=== PATIENT | male | born 1990 | race Caucasian/White ===

== ENCOUNTER 2016-07-28 19:59 | Emergency (ER) | payer OTHER ==
[2016-07-28 20:50] VITALS: BP 148/74
--- NOTE | 2016-07-28 23:06 | UC ---
Complaint Male HPI - HPI Summary HPI Summary: Had unprotected sex a few days ago, and would like to be tested for STD's. Declines HIV testing and syphilis testing. Also has some intermittent bilateral lower abd discomfort, suprapubic. No pain or burning with urination. No hematuria. No sores or blisters on his penis. No testicular pain. - History of Current Complaint Chief Complaint: UCAbdominalPain Stated Complaint: LOWER ABD PAIN Time Seen by Provider: 07/28/16 23:04 Hx Obtained From: Patient Onset/Duration: Gradual Onset, Lasting Days, Still Present Timing: Intermittent, Lasting Minutes Severity Initially: Moderate Severity Currently: Moderate Pain Intensity: 0 - no pain in UC Pain Scale Used: 0-10 Numeric Location: Suprapubic Character: Constant Pressure Aggravating Factor(s): Nothing Alleviating Factor(s): Nothing Associated Signs And Symptoms: Positive: Constipation. Negative: Diaphoresis, Back Pain, Fever, Hematuria, Dysuria, Blood in Stool, Rectal Pain, Nausea, Vomiting(# Of Episodes =), Penile Swelling, Penile Discharge Prior STD Hx: no - Risk Factors Testicular Torsion: Negative - Allergies/Home Medications Allergies/Adverse Reactions: Allergies Allergy/AdvReac Type Severity Reaction Status Date / Time No Known Allergies Allergy Verified 07/28/16 20:43 PMH/Surg Hx/FS Hx/Imm Hx Previously Healthy: Yes - Surgical History Surgical History: None - Family History Known Family History: Positive: Hypertension - Social History Alcohol Use: Occasionally Substance Use Type: None Smoking Status (MU): Never Smoked Tobacco Review of Systems Constitutional: Negative Skin: Negative Eyes: Negative ENT: Negative Respiratory: Negative Cardiovascular: Negative Gastrointestinal: Abdominal Pain Genitourinary: Other - sensation at the tip of his penis Motor: Negative Neurovascular: Negative Musculoskeletal: Negative Neurological: Negative Psychological: Negative All Other Systems Reviewed And Are Negative: Yes Physical Exam Triage Information Reviewed: Yes Appearance: Well-Appearing, No Pain Distress, Well-Nourished Vital Signs: Initial Vital Signs Temp 97.5 F 07/28/16 20:43 Pulse 57 07/28/16 20:43 Resp 16 07/28/16 20:43 BP 148/74 07/28/16 20:43 Pulse Ox 100 07/28/16 20:43 Vital Signs Reviewed: Yes Eyes: Positive: Conjunctiva Clear ENT: Positive: Hearing grossly normal. Negative: Muffled/hoarse voice Neck: Positive: Supple Respiratory: Positive: Lungs clear, Normal breath sounds, No respiratory distress Cardiovascular: Positive: RRR, No Murmur, Pulses Normal, Brisk Capillary Refill Abdomen Description: Positive: No Organomegaly, Soft, Other: - nl circ male, no discharge, no testicular masses or tenderness, descended bilat, no blisters or lesions, shaved perineum with a few follicles reddened. Min suprapubic discomfort. Negative: Bruit, CVA Tenderness (R), CVA Tenderness (L), Distended , Guarding, Hernia @, Hepatomegaly, McBurney's Point Tenderness, Peritoneal Signs, Pulsatile Mass, Splenomegaly Bowel Sounds: Positive: Present Musculoskeletal: Positive: Strength Intact, ROM Intact Neurological: Positive: Alert, Muscle Tone Normal Psychological Exam: Normal Skin Exam: Normal Complaint Male Course/Dx - Course Course Of Treatment: pt elects to have empiric treatment as he is no longer with that sexual partner and just wants to be treated, so he agrees to ceftriaxone and azithromycin treatment now. UA is neg for leuks, blood and nitrates, sp gr 1.025 - Differential Dx/Diagnosis Differential Diagnosis/HQI/PQRI: Paraphimosis, Ureteral Calculi, Urinary Tract Infection, Other - STD Provider Diagnoses: STD exposure, testing and treatment. abdominal pain Discharge - Discharge Plan Condition: Stable Disposition: HOME Patient Education Materials: Sexually Transmitted Diseases (ED) Referrals: No Primary Care Phys,NOPCP [Primary Care Provider] - [facility] [Outside] (call this number to get a primary care provider ) Additional Instructions: Your urine test did not show a UTI (urinary tract infection). We have sent testing for gonorrhea, chlamydia and trichomonas. Meanwhile we have empirically treated you for gonorrhea and chlamydia. We will notify you if you need further treatment or need to notify any partners based on the results which will take a few days. You should practice safe sex until we get those results even though you have been treated. We did not identify the cause for your lower abdominal discomfort tonight, but it does not appear to be serious at this time, and does not need further emergency care at this time. Return to urgent care or go to the emergency room if you have any new or worsening symptoms.
[2016-07-28] MEDS ORDERED: cefTRIAXone VIAL(*) 250 MG VIAL IM ONE (23:34)
[2016-07-28] MEDS ORDERED: Lidocaine 1% MPF* 2 ML VIAL INJ ONE (23:35)
[2016-07-28] MEDS ORDERED: Azithromycin TAB* 250 MG PO ONE (23:42)
[2016-07-28] MEDS ORDERED: Ondansetron ODT TAB* 4 MG PO ONE (23:42)
== END 2016-07-29 00:09 | disposition home or self-care (01) ==
LOC: UCEAST 19:59
DX: Z20.2 Contact with and (suspected) exposure to infections with a predominantly sexual mode of transmission (principal)
CPT/HCPCS: 81003; 87491; 87591; 87661; 96372; 99212; A9270-GY; G0463; J0696

== ENCOUNTER 2017-01-17 16:31 | Emergency (ER) | payer OTHER ==
[2017-01-17] MEDS ORDERED: Ibuprofen TAB* 600 MG PO ONE (16:38)
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
[2017-01-17 16:53] VITALS: BP 131/60
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
== END 2017-01-17 17:36 | disposition home or self-care (01) ==
LOC: UCEAST 16:31
DX: S62.339A Displaced fracture of neck of unspecified metacarpal bone, initial encounter for closed fracture (principal); Y93.75 Activity, martial arts; Y92.9 Unspecified place or not applicable; Y99.9 Unspecified external cause status
CPT/HCPCS: 99211; A9270-GY; G0463

== ENCOUNTER 2017-05-20 18:28 | Emergency (ER) | payer OTHER ==
[2017-05-20 18:37] VITALS: BP 133/74
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
== END 2017-05-20 19:13 | disposition home or self-care (01) ==
LOC: UCEAST 18:28
DX: Z11.3 Encounter for screening for infections with a predominantly sexual mode of transmission (principal); R36.9 Urethral discharge, unspecified; N48.89 Other specified disorders of penis
CPT/HCPCS: 81003; 87491; 87591; 99211; G0463

== ENCOUNTER 2017-06-02 15:52 | Emergency (ER) | payer OTHER ==
[2017-06-02 16:35] VITALS: BP 116/52
--- NOTE | 2017-06-02 18:00 | UC ---
Ear Complaint HPI - HPI Summary HPI Summary: 26 yo WM c/o decreased hearing on right ear associated with cerumen impaction per pt. MORRISON had it for a week, denies pain - History of Current Complaint Chief Complaint: UCEar Stated Complaint: EAR COMPLAINT Time Seen by Provider: 06/02/17 17:15 Hx Obtained From: Patient Onset/Duration: Lasting Days Pain Intensity: 0 Aggravating Factors: Nothing Alleviating Factors: Nothing - Allergies/Home Medications Allergies/Adverse Reactions: Allergies Allergy/AdvReac Type Severity Reaction Status Date / Time No Known Allergies Allergy Verified 06/02/17 16:36 PMH/Surg Hx/FS Hx/Imm Hx Previously Healthy: Yes - Surgical History Surgical History: Yes Surgery Procedure, Year, and Place: Metacarpal repair - Family History Known Family History: Positive: Hypertension - Social History Alcohol Use: Rare Alcohol Amount: Monthly Substance Use Type: None Smoking Status (MU): Never Smoked Tobacco Review of Systems Constitutional: Negative Skin: Negative Eyes: Negative ENT: Other - mild decreased hearing on right >L Respiratory: Negative Cardiovascular: Negative Gastrointestinal: Negative Genitourinary: Negative Motor: Negative Neurovascular: Negative Neurological: Negative Psychological: Negative All Other Systems Reviewed And Are Negative: Yes Physical Exam Triage Information Reviewed: Yes Appearance: Well-Appearing Vital Signs: Initial Vital Signs Temp 36.9 C 06/02/17 16:31 Pulse 60 06/02/17 16:31 Resp 16 06/02/17 16:31 BP 116/52 06/02/17 16:31 Pulse Ox 100 06/02/17 16:31 Eye Exam: Normal ENT: Positive: Other - B/L cerumen impaction Dental Exam: Normal Neck exam: Normal Neck: Positive: 1 Respiratory Exam: Normal Cardiovascular Exam: Normal Abdominal Exam: Normal Musculoskeletal Exam: Normal Neurological Exam: Normal Psychological Exam: Normal Skin Exam: Normal Ear Complaint Course/Dx - Course Course Of Treatment: cerumen successfully removed with clear visualization of TM B/L with good light reflex - Differential Dx/Diagnosis Differential Diagnosis/HQI/PQRI: Cerumen Impaction, Otitis Externa, Otitis Media , URI Provider Diagnoses: B/L cerumen impaction Discharge - Sign-Out/Discharge Documenting (check all that apply): Discharge - Discharge Plan Condition: Stable Disposition: HOME Patient Education Materials: Cerumen Impaction (ED) Referrals: Aaron aBrba MD [Primary Care Provider] - Additional Instructions: please use ear curette to prevent regular build up of ear wax - Billing Disposition and Condition Condition: STABLE Disposition: HOME
== END 2017-06-02 17:55 | disposition home or self-care (01) ==
LOC: UCEAST 15:52
DX: H61.23 Impacted cerumen, bilateral (principal); R51 Headache
CPT/HCPCS: 99213; G0463

== ENCOUNTER 2017-11-15 12:47 | Emergency (ER) | payer OTHER ==
[2017-11-15 13:02] VITALS: BP 129/84
[2017-11-15] MEDS ORDERED: Tetracaine 0.5% OPTH.SOL 4 ML* 1 DROP BTL RIGHT EYE ONE (13:54)
[2017-11-15] MEDS ORDERED: Fluorescein Sod TOPICAL 0.6* 0.6 MG TEST OPHTHALMIC ONE (13:54)
[2017-11-15] MEDS ORDERED: Ibuprofen TAB* 600 MG PO ONE (13:54)
[2017-11-15] MEDS ORDERED: Lidocain 1% EPI 1:100,000 * 30 ML MDV INJ ONE (13:58)
[2017-11-15] MEDS ORDERED: Tetan/Diph/Pertus SYR(Tdap)* 0.5 ML SYR(BOOSTRIX) use SYR IM ONE (13:59)
[2017-11-15] MEDS ORDERED: Polymyx/Trimethoprim OPTH* 10 ML BTL RIGHT EYE ONE (14:07)
[2017-11-15] MEDS ORDERED: Lidocain 1% EPI 1:100,000 * 30 ML MDV ONE (14:23)
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
--- NOTE | 2017-11-15 15:02 | UC ---
Head Injury HPI - HPI Summary HPI Summary: 27-year-old male presents for head injury after tripping and falling down some stairs. States he was descending some outdoor stairs when he tripped and fell striking the right side of his face on the railing. He is unsure the exact number of stairs he fell down. Denies any loss of consciousness and is able to recall the events immediately prior and following the incident. He is complaining of a mild headache. He has an open laceration to his right upper eyelid, a very superficial laceration to his right cheek immediately below his right eye with significant bruising and swelling of that area. He is also reporting a scratching, foreign body sensation to his right eye is associated with some mild photophobia and tearing. Denies visual disturbances, dizziness, lightheadedness, neck pain, jaw pain, malocclusion, chest pain, palpitations, shortness of breath , abdominal pain, nausea, vomiting, or any other injury. - History Of Current Complaint Chief Complaint: UCLaceration Stated Complaint: LAC ON FACE Time Seen by Provider: 11/15/17 13:43 Hx Obtained From: Patient Onset/Duration: Sudden Onset Severity Currently: Moderate Severity Initially: Moderate Pain Intensity: 2 Character: Dull - headache Aggravating Factor(s): Nothing Alleviating Factor(s): Nothing Associated Signs And Symptoms: Negative: LOC (Time In Secs./Mins/Hrs), Confusion , Memory Loss, Seizure - Headache, Dental Malocclusion, Neck Pain, Nausea, Vomiting - Risk Factors SDH Risk Factor: Negative - Allergies/Home Medications Allergies/Adverse Reactions: Allergies Allergy/AdvReac Type Severity Reaction Status Date / Time No Known Allergies Allergy Verified 11/15/17 13:02 PMH/Surg Hx/FS Hx/Imm Hx - Additional Past Medical History Additional PMH: Denies significant past medical history - Surgical History Surgical History: Yes Surgery Procedure, Year, and Place: Metacarpal repair - Family History Known Family History: Positive: Hypertension - Social History Occupation: Employed Full-time Lives: With Family Alcohol Use: Rare Alcohol Amount: Monthly Substance Use Type: None Smoking Status (MU): Never Smoked Tobacco - Immunization History Hx Tetanus, Diphtheria Vaccination: No - unknown tetanus status Review of Systems Constitutional: Negative Skin: Other - See history of present illness Eyes: Photophobia, Other - See history of present illness ENT: Nasal Discharge Respiratory: Negative Cardiovascular: Negative Gastrointestinal: Negative Motor: Negative Neurovascular: Negative Musculoskeletal: Negative Neurological: Headache Psychological: Anxious Is Patient Immunocompromised?: No All Other Systems Reviewed And Are Negative: Yes Physical Exam Triage Information Reviewed: Yes Appearance: Well-Nourished, Pain Distress - Appears uncomfortable, Signs of Trauma - Localized trauma to the right orbital region. There is bruising, swelling, and tenderness to the right maxilla. No crepitus noted. Lacerations as noted below. Vital Signs: Initial Vital Signs Temp 97.2 F 11/15/17 12:57 Pulse 80 11/15/17 12:57 Resp 18 11/15/17 12:57 BP 129/84 11/15/17 12:57 Pulse Ox 98 11/15/17 12:57 Vital Signs Reviewed: Yes Eyes: Positive: Other: - Mild right conjunctival erythema with significant tearing. Tetracaine drops instilled into right eye followed by fluorescein staining and I examined under magnification using a Glaser lamp. A large corneal abrasion noted to the lower part of the eye but does not involve visual field. See diagram. ENT: Positive: Pharynx normal, Nasal drainage - clear, blood tinged drainage from right nare, Uvula midline, Other - TMJ nontender with smooth ROM without click or crepitus. Extraoccular eye movements intact.. Negative: Dental tenderness - No maloclusion Neck: Positive: Supple, Nontender, Other: - Full painless ROM. No stepoffs or deformities noted. Respiratory: Positive: Chest non-tender, Lungs clear, Normal breath sounds, No respiratory distress Cardiovascular: Positive: RRR, No Murmur, Pulses Normal, Brisk Capillary Refill Abdomen Description: Positive: Nontender, No Organomegaly, Soft. Negative: Distended, Guarding Bowel Sounds: Positive: Present Musculoskeletal: Positive: Strength Intact - All extremities, ROM Intact - All extremities, Other: - Pelvis stable. CTLS spine nontender. Neurological: Positive: Alert - AAOx4. PERRLA. FELICIANO equal and strong. Sensoromotor intact., Muscle Tone Normal Skin: Positive: significant lesion(s) - 2 cm open laceration to right upper eyelid. Superficial laceration right cheek. See diagram. Procedures - Eye Procedure Right Alcaine Drops Administered: Yes - with fluorsceine. See PE for details. Antibiotic Ointment/Drps Admin: right eye - Laceration/Wound Repair 1 Location: Other - right upper eyelid Description: Linear Anesthesia: 1.0% - with epi Length, Depth and Shape: 2 cm linear incision down to SC layer Betadine Prep?: No - wound cleansed with sterile saline and cholorhexadine solution Irrigated w/ Saline (ccs): 250 Laceration/Wound Explored: clean Closure: Single Layer Suture Type: Nylon - 6.0 Ethilon Number of Sutures: 6 - A running suture was used with a total of 6 throws. Layer Closure?: No Sterile Dressing Applied?: No Diagnostics - Radiology No standard instances Xray Interpretation: Positive (See Comments) Radiology Interpretation Completed By: ED Physician, Radiologist - Patient Name : JOE HERNANDEZ Medical Record#: [id number] Ordering Physician: Girish Dominguez NP Acct.#: [id number] : 1990 Age: 27 Sex: M Location: [facility] Exam Date: 11/15/17 135 ADM Status: REG ER Order Information: CT MAXILLOFACIAL W/O Accession Number: [id number] CPT: 46854 HISTORY: facial trauma s/p fall down stairs COMPARISONS: None TECHNIQUE: Multiple contiguous axial CT scans were obtained of the face without intravenous contrast, with coronal and sagittal multiplanar reformations. FINDINGS: BONES: There is comminuted fractures involving the anterior maxilla extending to the inferior orbital wall. The right zygomatic arch is intact. The pterygoid plate is intact. ORBITS: There is extraconal subcutaneous emphysema of the right orbit. There is minimal herniation of orbital fat through the orbital floor fracture. There is no retrobulbar hematoma. PARANASAL SINUSES: There is an air-fluid level within the right maxillary sinus. BRAIN AND SOFT TISSUE: Unremarkable. OTHER: None. IMPRESSION: COMMINUTED FRACTURE OF THE RIGHT ANTERIOR MAXILLA INVOLVING THE INFRAORBITAL WALL WITH A SMALL AMOUNT OF HERNIATION OF ORBITAL FAT THROUGH THE FLOOR OF THE FRACTURE. Head Injury Course/Dx - Course Course Of Treatment: 27-year-old male presents with a reported fall down unknown number of stairs stairs. He has significant localized trauma to the right orbital area. No other injuries were noted. Patient was reluctant to give details regarding the incident and considering how localized trauma was I do have a question as to the exact mechanism of his injuries. He denied any loss of consciousness and his neuro exam was intact. He was complaining of severe right high scratchiness with a foreign body sensation and excessive tearing. Tetracaine and fluorescein were instilled into the eye and it was examined under magnification with Wood's lamp and a large corneal abrasion was noted across the lower aspect of the iris but did not involve his field of vision. Patient was then sent for maxillofacial CT which showed a comminuted fracture of the anterior maxilla extending to the inferior orbital wall with some minimal herniation of orbital fat through the orbital floor fracture as well as some extraconal subcutaneous emphysema the right orbit and an air-fluid level within the right maxillary sinus. Patient had a 2 cm linear laceration to his right upper eyelid that was cleaned and repaired using a running suture of 6-0 Ethilon. There was a second superficial laceration to his right cheek but wound margins were well aligned and therefore it was decided that no repair was necessary. Tetanus was updated. Case was discussed with Dr. Nava and it was determined patient could be safely discharged with antibiotics and close follow-up with ENT. Patient was still complaining of some significant high irritation at the time of discharge so arrangements were made for him to be further evaluated by ophthalmology and Dr. Guerin's office upon discharge from . Wound care instructions and anticipatory guidance was discussed with the patient. Warning symptoms requiring immediate evaluation in the ER were reviewed. Patient verbalized understanding and agreed with plan of care. - Differential Dx/Diagnosis Provider Diagnoses: Comminuted fracture right anterior maxilla involving the infraorbital wall, laceration right upper eye lid, superficial facial laceration right cheek, right corneal abrasion Discharge - Sign-Out/Discharge Documenting (check all that apply): Patient Departure All imaging exams completed and their final reports reviewed: Yes - Discharge Plan Condition: Stable Disposition: HOME Prescriptions: Amoxicillin/Clavulanate TAB* [Augmentin TAB 875*] 875 mg PO BID #20 tab Hydrocodone/Acetaminophen [Hydrocodone-Acetamin 5-325 mg] 1 each PO Q8HR PRN # 21 tablet MDD 3 PRN Reason: Pain Patient Education Materials: Care For Your Stitches (ED), Laceration (ED), Facial Fracture (ED), Corneal Abrasion (ED) Referrals: Aaron Barba MD [Primary Care Provider] - Abdirahman Guerin MD [Medical Doctor] - As Soon As Possible (You have an appointment to see them urgently after discharge from here. Go strait to office. ) Palmer Coburn MD [Medical Doctor] - 3 Days (Call for appointment.) Additional Instructions: Start Augmentin 1 tab twice a day for 10 days. Be sure to take this with some food to avoid upset stomach. Use [id number] ibuprofen (Advil, Motrin) 600 mg every 8 hours as needed for pain. Use hydrocodone-acetaminophen 1 tab every 8 hours as needed for severe pain. Cleanse your lacerations gently with a mild soap and water at least daily. Apply a thin layer of antibiotic ointment such as bacitracin to these wounds twice a day. You will need to have the sutures removed in 5-7 days. May return here or follow up with her primary care provider to have this done. Watch for signs of infection including a fever greater than 100.5 F, redness that spreads, increased swelling, pain that is not controlled pain medication, or any pus draining from the wounds. He should seek immediate medical attention should any of these occur. Go directly from here to see Dr. Guerin, ophthalmology, for further evaluation of her corneal abrasion. Follow-up with Dr. Coburn, ENT, within 3 days for follow up of your facial fracture. Call for an appointment. Seek immediate medical attention in the emergency room if you have a severe headache, visual disturbances, dizziness or lightheadedness, confusion, are difficult to arouse, difficulty speaking, weakness, numbness, or tingling in arms or legs, chest pain, shortness of breath, or any worsening of symptoms. - Billing Disposition and Condition Condition: STABLE Disposition: Home Images Head: 1 - 2 cm open lacearation with bleeding controlled 2 - 0.5 cm superficial laceration with wound margins well approximated 3 - Eccymosis, swelling, and tenderness over maxilla 4 - Large corneal abrasion that extends across lower part of iris without involvement of the visual field - Attestation Statements Provider Attestation: I was available for consult. This patient was seen by the [facility]. The patient was discussed, but not seen by, or examined by me. -Hermelinda
--- OUTSIDE RECORDS SUMMARY | 2017-11-17 04:18 | XMS REPORT | Continuity of Care Document ---
:1990 External Reference #:[id number] Author Name Javon Layne M.D. Address [address] [place] [address] Care Team Providers Name Role Phone Javon Layne M.D. Care Team Information Quality Engineer Medical Device Unavailable Payers Type Date Identification Numbers Payment Provider Subscriber Policy Number: [id number] [facility] Que Brasher PayID: [id number] [address] [address] [place] [address] Advance Directives Description No Information Available Problems Date Description Provider Status Onset: 11/15/2017 Late effect of superficial injury Javon Layne M.D. 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 ETOH Use Denies alcohol use Tobacco Use Start: Unknown End: Patient is a former smoker Unknown Recreational Drug Use Denies Drug Use Smoking Status Reviewed: 11/15/17 Patient is a former smoker Allergies, Adverse Reactions, Alerts Description No Known Drug Allergies Medications Medication Date Status Form Strength Qnty SIG Indications Ordering Provider Erythromycin Active Ointment 5mg/GM 1Tube Apply To S05.01xS Javon Choi Right [place] Eye 3X/Day Hydrocodone-Juan José /0 Active Tablets 5-325mg Unknown taminophen 000 Amoxicillin/Cla /0 Active Tablets 875-125mg Unknown vulanate 000 Potassium Immunizations Description No Information Available Vital Signs Description No Information Available Results Description No Information Available Procedures Description No Information Available Encounters Description No Information Available Plan of Treatment 11/15/2017 - Javon Layne M.D.S05.01xS Injury of conjunctiva and corneal abrasion without foreign bNew Medication:Erythromycin 5 mg/GM - Apply To The Right Eye 3X/DayComments:Smoking can increase the risk of developing or worsening any eye related disease, as well as affect your overall health. If you are a smoker, we strongly recommend that you quit.If you are not a smoker, we strongly recommend that you do not start. There is a scratch on the surface of your right eye. It will heal on it's own. Use artificial tears as needed to help with irritation. PLACE THE ERYTHROMYCIN OINTMENT TOT HE RIGHT EYE 3X/ DAYFollow up:2 DAY F/U At your next visit, we are not planning to dilate your eyes. However, if you have any changes in your vision or new symptoms, there are certain situations that require us to dilate your eyes. If Dr. Layne requests any additional testing, that may require extra time. If you have any questions before your next appointment, please call our office at .
== END 2017-11-15 16:10 | disposition home or self-care (01) ==
LOC: UCEAST 12:47
DX: S02.40CA Maxillary fracture, right side, initial encounter for closed fracture (principal); S01.111A Laceration without foreign body of right eyelid and periocular area, initial encounter; S05.01XA Injury of conjunctiva and corneal abrasion without foreign body, right eye, initial encounter; S01.411A Laceration without foreign body of right cheek and temporomandibular area, initial encounter; W10.9XXA Fall (on) (from) unspecified stairs and steps, initial encounter; Y92.9 Unspecified place or not applicable; Z23 Encounter for immunization
CPT/HCPCS: 12011; 70486; 90715; 99212; A9270-GY; G0463

== ENCOUNTER 2017-11-27 13:36 | Emergency (ER) | payer OTHER ==
--- OUTSIDE RECORDS SUMMARY | 2017-11-27 13:40 | XMS REPORT | Continuity of Care Document ---
:1990 External Reference #:[id number] Author Name Javon Layne M.D. Address [address] [place] [address] Care Team Providers Name Role Phone Javon Layne M.D. Care Team Information Medical Information Officer Unavailable Payers Type Date Identification Numbers Payment Provider Subscriber Policy Number: [id number] [facility] Que Brasher PayID: [id number] [address] [address] [place] [address] Advance Directives Description No Information Available Problems Date Description Provider Status Onset: 11/15/2017 Late effect of superficial injury Javon Layne M.D. Active Onset: 11/17/2017 Late effect of fracture of skull Javon Layne M.D. 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 times a day Hydrocodone-Juan José Active Tablets 5-325mg Unknown taminophen 000 Amoxicillin/Cla Active Tablets 875-125mg Unknown vulanate 000 Potassium Erythromycin Hx Ointment 5mg/GM 1Tube Apply To S05.01xS Javon 018 - The [place], Right MDi 018 Eye 3X/Day Immunizations Description No Information Available Vital Signs Description No Information Available Results Description No Information Available Procedures Date Code Description Status 11/17/2017 84622 Contact Lens For Treatment Of Ocular Surface Disease Completed 11/15/2017 72150 New Patient Comprehensive Exam Completed Encounters Type Date Location Provider Dx Diagnosis Office Visit 11/17/2017 Abdirahman Guerin Javon S05.01xS Inj conjunctiva and 12:00p , brittny Layne M.D. corneal abrasion w/o fb, r eye, sequela S02.31xS Fracture of orbital floor, right side, sequela Plan of Treatment 11/22/2017 - Javon Layne M.D.S05.01xS Injury of conjunctiva and corneal abrasion without foreign bComments:Smoking can increase the risk of developing or worsening any eye related disease, as well as affect your overall health. If you are a smoker, we strongly recommend that you quit.If you are not a smoker , we strongly recommend that you do not start. There is a scratch on the surface of your right eye. Dr. Layne has inserted a bandage contact lens in the right eye to cover the scratch. If the lens falls out for any reason, please do not try to put it back in on your own, and contact the office.Follow any instructions given by Dr. Layne carefully. ~B_DO NOT PLAY ANY CONTACT SPORTS FOR 1 MONTH.~b_CONTINUE USING OVER THE COUNTER ARTIFICAL TEARS 3-4 TIMES A DAY FOR THE NEXT WEEK. USE THE OCUFLOX 1 MORE TIME TODAY THEN CAN DISCONTINUE USING.I WILL REMOVE YOUR SUTURES IN 1 WEEK.Follow up:1 Week Follow Up SUTURE REMOVAL At your next visit, we are not planning to dilate your eyes. However, if you have any changes in your vision or new symptoms, there are certain situations that require us to dilate your eyes. If Dr. Layne requests any additional testing, that may require extra time.If you have any questions before your next appointment, please call our office at .S02.31xS Fracture of orbital floor, right side, sequela
--- OUTSIDE RECORDS SUMMARY | 2017-11-27 13:40 | XMS REPORT | Continuity of Care Document ---
:1990 External Reference #:[id number] Author Name Javon Layne M.D. Address [address] [place] [address] Care Team Providers Name Role Phone Javon Layne M.D. 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 018 Eye 3X/Day Immunizations Description No Information Available Vital Signs Description No Information Available Results Description No Information Available Procedures Date Code Description Status 11/15/2017 83573 New Patient Comprehensive Exam Completed Encounters Description No Information Available Plan of Treatment 11/17/2017 - Javon Layne M.D.S05.01xS Injury of conjunctiva and corneal abrasion without foreign bNew Medication:Ocuflox 0.3 % - 1 drop right eye 3 times a dayComments:Smoking can increase the risk of developing or [...] artificial tears as needed to help with irritation.Follow up:/U TUESDAY At your next visit, we are not [...] .S02.31xS Fracture of orbital floor, right side, sequelaComments:Smoking can increase the risk of developing or worsening any eye related disease, as well as affect your overall health. If you are a smoker , we strongly recommend that you quit.If you are not a smoker, we strongly recommend that you do not start.
--- NOTE | 2017-11-27 13:52 | UC ---
Laceration HPI - HPI Summary HPI Summary: 27 yo male presents for suture removal. He had an injury on 11/15 and has been following up with Dr. Guerin. Initially his sutures were recommended to be removed in 5-7 days, but pt says Dr. Guerin wanted him to keep them in 10-12 days as the area seemed to still be healing. Pt is here today (day 12) for removal. In regards to his injury - he had a fracture to his maxilla. He is having no pain, but is concerned because he feels it is "pushing" on the right side of his nose causing him to breathe "weird". He was not able to see ENT yet. - History Of Current Complaint Stated Complaint: SUTURE REMOVAL Time Seen by Provider: 11/27/17 13:52 Hx Obtained From: Patient Laceration Location: Eye - Allergies/Home Medications Allergies/Adverse Reactions: Allergies Allergy/AdvReac Type Severity Reaction Status Date / Time No Known Allergies Allergy Verified 11/27/17 13:53 PMH/Surg Hx/FS Hx/Imm Hx - Additional Past Medical History Additional PMH: None - Surgical History Surgical History: Yes Surgery Procedure, Year, and Place: Metacarpal repair - Family History Known Family History: Positive: Hypertension - Social History Occupation: Employed Full-time Lives: With Family Alcohol Use: Rare Alcohol Amount: Monthly Substance Use Type: None Smoking Status (MU): Never Smoked Tobacco - Immunization History Hx Tetanus, Diphtheria Vaccination: No - unknown tetanus status Review of Systems Constitutional: Negative Skin: Other - Suture right eye Eyes: Negative Respiratory: Negative Cardiovascular: Negative Neurovascular: Negative Neurological: Negative Psychological: Negative All Other Systems Reviewed And Are Negative: Yes Physical Exam - Summary Physical Exam Summary: GENERAL: NAD. WDWN. No pain distress. SKIN: RIGHT EYELID: Single continuous suture. Well approximated. Well healed. Scabbing overlying suture. No erythema, edema, or warmth. No streaking, bleeding , or drainage. EYES: EOMI without pain. PERRLA. NECK: Supple. Nontender. No lymphadenopathy. CHEST: No accessory muscle use. Breathing comfortably and in no distress. CV: Pulses intact. Cap refill <2seconds NEURO: Alert. PSYCH: Age appropriate behavior. Triage Information Reviewed: Yes Vital Signs: Vital Signs: Temp Pulse Resp BP Pulse Ox 98.4 F 54 16 129/66 100 11/27/17 13:48 11/27/17 13:48 11/27/17 13:48 11/27/17 13:48 11/27/17 13:48 Vital Signs Reviewed: Yes Laceration Course/Dx - Course/Dx Course Of Treatment: Suture removal. I strongly advised him to call ENT again to schedule an appointment for follow up regarding his fracture. - Differential Dx - Laceration/Wound Provider Diagnoses: suture removal Discharge - Sign-Out/Discharge Documenting (check all that apply): Patient Departure All imaging exams completed and their final reports reviewed: No Studies - Discharge Plan Condition: Stable Disposition: HOME Patient Education Materials: Stitches Removal (ED) Referrals: Aaron Barba MD [Primary Care Provider] - Palmer Coburn MD [Medical Doctor] - As Soon As Possible Additional Instructions: If you develop a fever, shortness of breath, chest pain, new or worsening symptoms - please call your PCP or go to the ED. 1) Please follow up with ENT as soon as possible - Billing Disposition and Condition Condition: STABLE Disposition: Home
[2017-11-27 13:53] VITALS: BP 129/66
== END 2017-11-27 14:09 | disposition home or self-care (01) ==
LOC: UCEAST 13:36
DX: S01.111D Laceration without foreign body of right eyelid and periocular area, subsequent encounter (principal); X58.XXXD Exposure to other specified factors, subsequent encounter